=== PATIENT | female | born 1985 | race Caucasian/White ===

== ENCOUNTER → 2020-05-23 | Outpatient (CLI) | payer OTHER | LOC: KOH-I 11:47 | DX: M54.2 Cervicalgia (principal); M47.812 Spondylosis without myelopathy or radiculopathy, cervical region; M47.816 Spondylosis without myelopathy or radiculopathy, lumbar region; M51.37 Other intervertebral disc degeneration, lumbosacral region | CPT/HCPCS: 72040; 72070; 72100 ==